=== PATIENT | female | born 1965 ===

== ENCOUNTER 2020-05-10 05:55 | Day surgery (SDC) | payer OTHER ==
[~2020-05-10 05:55] MED LIST: ADULT LOW DOSE81 M1 PO; COZAAR50 MG PO; HUMALOG100 UNIT/2; LANTUS
== END 2020-05-10 12:30 | disposition home or self-care (01) ==
LOC: CIR.AMB 05:55
PROVIDERS: ATTEND Orthopaedic Surgery
DX: M75.01 Adhesive capsulitis of right shoulder (principal); Z20.828 Contact with and (suspected) exposure to other viral communicable diseases